=== PATIENT | male | born 1980 | race Caucasian/White ===

== ENCOUNTER 2017-10-25 13:17 | Day surgery (SDC) | payer OTHER, MEDICAID, SELFPAY ==
[2017-10-22 09:05] VITALS: BMI 26.7
[2017-10-25] VITALS (7 sets, daily range): BP systolic 114–151; BP diastolic 72–85; PULSE 70–98; RESP 15–16; TEMP 36.2–36.3; O2SAT 94–100; BMI 26.7
[2017-10-25] MEDS: LACTATED RINGERS 1,000 ML 42 ML IV ×2 (16:30→18:55)
--- NOTE | 2017-10-25 17:32 | PM.PREOP ---
Pre-operative Note Interval Note Pre-op Check: History & Physical Reviewed by Physician
--- NOTE | 2017-10-25 17:35 | PM.OP.1 ---
Operative Date/Time/Diagnoses - Date of procedure: 10/25/17 Time of procedure: 20:17 Pre-op diagnosis: Anterior cruciate ligament rupture left knee Post-op diagnosis: same Procedure & Clinicians Procedure: Anterior cruciate ligament reconstruction with quadriceps tendon left knee Same procedure as scheduled: Yes Indications: The patient presents today for ACL reconstruction and medial meniscectomy versus meniscal repair. The nature of the procedure including the risks and benefits, alternatives, postoperative course and expected outcome were discussed and all questions answered. Consent was obtained. Operative site confirmed and marked. Surgeon: Bj Reed Cigar Wrapper Tender Automatic: Doris Bernal Anesthesia Type: General and Local Operative Notes Findings: Complete rupture of the anterior cruciate ligament from the femoral attachment. No clear medial meniscal tear was seen. The medial lateral meniscus were stable. The PCL was stable. No significant chondromalacia. Patellar tracking was normal. ACL reconstruction performed as noted below. Closure Type: primary Specimen(s): none sent Implants & Drains: Arthrex ACL buttons x2. Applied: implant(s) Estimated Blood Loss (mL): 10 Blood products transfused: none Tourniquet time (min): 115 Procedure in detail: The patient was taken operative suite and placed under general anesthesia. He received 2 g of Ancef prior to surgery. The leg was prepped and draped in usual sterile fashion. The leg was then exsanguinated with Esmarch dressing and tourniquet raised to 250 torr. Examination under anesthesia confirmed ACL rupture. A 5 cm incision was then placed superior to the patella for harvesting the quadriceps graft. A 10 mm x 70 mm graft was harvested. The tendon was then closed side to side with 0 Vicryl. Subcutaneous tissue was closed with 2 Vicryl subcu and 4 0 Vicryl in the skin. A whip stitch was placed in the end of each graft and the graft was tensioned. Diagnostic arthroscopy was then performed through anterior medial and lateral parapatellar portals. Complete rupture of the ACL was confirmed which was essentially avulsed from the femoral side. The residual graft was removed. The arthroscopy was otherwise unremarkable. The medial meniscus was stable. No tear was identified. See findings above. A 10 mm Arthrex flip cutter was then used to make the femoral tunnel and tibial tunnel within the anatomic foot print. The tendon was then pulled into the tunnels. The femoral side was tied over a ?dog bone? type suture button on the femoral side. The fiber tape was also placed around this button to act as an internal brace. The graft was intention in 15? of extension and was tied over similar button on the tibial side. The knee was stable to Bennett's testing and pivot shift. The graft was also stable to probing. No impingement to flexion extension. The internal brace was in separately tension and fixed to the tibia with an Arthrex anchor. Care was taken not to significantly tension the internal brace so that the knee was stabilized primarily by the tendon. The knee was drained. Portal sites were closed with 4 0 Vicryl and Steri-Strips. Sterile gauze dressing and Mitesh wrap applied. The patient tolerated the procedure well and was returned to cover in good condition. Complications: none Condition: stable Disposition: same day surgery Plan for aftercare: The patient may be weight-bearing as tolerated with crutches. He will return to our clinic tomorrow or next week for a brace. [place] knee range of motion exercises. Clinic follow-up in 2 weeks.
[2017-10-25] MEDS: CEFAZOLIN 2 GM/100 ML FROZ.PIGGY IV (17:50)
[2017-10-25] MEDS: LIDOCAINE 1% W/EPI INJ 20 ML INJ (18:52)
[2017-10-25] MEDS: MORPHINE 4 MG/ML INJ INJ (18:52)
[2017-10-25] MEDS: ROPIVACAINE 0.5% PF 5 MG/ML 20ML AMP 10 ML INJ (18:55)
[2017-10-25] MEDS: fentaNYL 100 MCG/2 ML INJ 50 MCG IV ×2 (20:52→21:02)
== END 2017-10-25 21:46 | disposition home or self-care (01) ==
PROVIDERS: Visit Provider Orthopaedic Surgery
PROC: (CPT 29888; principal; 2017-10-25 14:45)
PROC: (CPT 29870; 2017-10-25 14:45)
DX: S83.512A Sprain of anterior cruciate ligament of left knee, initial encounter (principal); Y93.67 Activity, basketball; I10 Essential (primary) hypertension
CPT/HCPCS: 27428; J0690; J1100; J1170; J2270; J2405; J2704; J2795; J3010